=== PATIENT | female | born 1985 ===

== ENCOUNTER → 2021-04-01 09:57 | Outpatient (BNVA) | payer OTHER, SELFPAY | PROVIDERS: PCP Internal Medicine; Visit Provider Nurse Practitioner Family | DX: M54.2 Cervicalgia (principal); M79.18 Myalgia, other site | CPT/HCPCS: 99202 ==

== ENCOUNTER → 2021-04-26 10:42 | Outpatient (BNVA) | payer OTHER, SELFPAY | PROVIDERS: PCP Internal Medicine; Visit Provider Nurse Practitioner Family | DX: M54.2 Cervicalgia (principal); M79.18 Myalgia, other site | CPT/HCPCS: 20552; 20553; 99212 ==